=== PATIENT | male | born 1970 | race American Indian/Alaskan Native ===

== ENCOUNTER 2017-02-24 02:07 | Emergency (ER) | payer SELFPAY ==
[2017-02-24 03:48] LABS: Basophils % (Auto) 0.4 % (0.0-1.8); Eosinophils % (Auto) 0.4 % (0.0-4.3); Hematocrit 44.6 % (35.5-45.6); Hemoglobin 14.5 gm/dl (11.8-15.2); Mean Corpuscular HGB Conc 33 % (32-34); Mean Corpuscular Volume 79 fl (84-94); Platelet Count 155 K/mm3 (140-440); Red Blood Count 5.64 M/mm3 (3.65-5.03); Red Cell Distribution Width 15.2 % (13.2-15.2)
[2017-02-24 03:52] LABS: Bilirubin,Urine NEG (Negative); Blood,Urine NEG (Negative); Ketones,Urine NEG (Negative); Leukocyte Esterase,Urine SM (Negative); Mucus,Urine FEW /HPF; Nitrite,Urine NEG (Negative); Protein,Urine <15 mg/dL mg/dL (Negative); Urobilinogen,Urine < 2.0 mg/dL (<2.0)
[2017-02-24 04:01] LABS: Alanine Aminotransferase 13 units/L (7-56); Albumin 4.5 g/dL (3.9-5); Albumin/Globulin Ratio 1.6 %; Alkaline Phosphatase 75 units/L (35-129); Anion Gap 19 mmol/L; Bilirubin,Total < 0.2 mg/dL (0.1-1.2); Blood Urea Nitrogen 10 mg/dL (9-20); Calcium 9.5 mg/dL (8.4-10.2); Carbon Dioxide 22 mmol/L (22-30); Chloride 101.6 mmol/L (98-107); Glucose 125 mg/dL (75-100); Lipase 46 units/L (13-60); Potassium 3.5 mmol/L (3.6-5.0); Sodium 139 mmol/L (137-145); Total Protein 7.4 g/dL (6.3-8.2)
[2017-02-24 04:11] LABS: Mean Corpuscular Hemoglobin 26 pg (28-32)
[2017-02-24] MEDS ORDERED: MOTRIN PO ONE (07:31)
[2017-02-24] MEDS ORDERED: ROCEPHIN IM ONE (07:31)
[2017-02-24] MEDS ORDERED: ZITHROMAX PO ONE (07:31)
[2017-02-24] MEDS ORDERED: XYLOCAINE 1% MPF 5 mL INFILTRATI ONE (07:31)
[2017-02-24] MEDS ORDERED: NORVASC PO ONE (07:39)
--- NOTE | 2017-02-24 07:42 | Emergency Department Report ---
ED Male HPI - General Chief complaint: Abdominal Pain Stated complaint: ABDOMINAL PAIN Time Seen by Provider: 02/24/17 07:22 Source: patient Mode of arrival: Ambulatory Limitations: No Limitations - History of Present Illness Initial comments: 46-year-old male past medical history hypertension, left torn rotator cuff, history of chlamydia and gonorrhea, presents with complaint of pain in his groin and penile discharge for 2 weeks. Patient states she has a yellowish discharge with mild dysuria while urinating from tip of penis for 2 weeks. Denies any nausea vomiting no testicular pain no other lesions and genitourinary region. Patient denies any headache dizziness no blurry vision denies any weakness no chest pain no palpitations no shortness of breath no paresthesias. He incidentally states that his left shoulder is aching him as he has a torn rotator cuff and is expecting to have surgery next week for it. Also states that he has been off his hypertension medication for about 2-3 months, states he ran out of amlodipine. Patient does not endorse abdominal pain during my clinical exam. Pt AA0x3, cooperative, NAD. Complaint: penile discharge Onset/Timin -: week(s) Location: penis Severity: mild Quality: burning Consistency: intermittent Improves with: none Worsens with: urination - Related Data Previous Rx's Medication Instructions Recorded Last Taken Type Pantoprazole [Protonix TAB] 40 mg PO QDAY #14 tablet 02/01/17 Unknown Rx amLODIPine [Norvasc] 10 mg PO QDAY #30 tablet 02/01/17 Unknown Rx Acetaminophen [Acetaminophen TAB] 500 mg PO Q6HR PRN #20 tablet 02/24/17 Unknown Rx Ciprofloxacin HCl [Ciprofloxacin 500 mg PO Q12H #20 tab 02/24/17 Unknown Rx TAB] amLODIPine [Norvasc] 5 mg PO DAILY #30 tab 02/24/17 Unknown Rx Allergies Allergy/AdvReac Type Severity Reaction Status Date / Time No Known Allergies Allergy Unverified 08/03/13 08:08 ED Review of Systems ROS: Stated complaint: ABDOMINAL PAIN Other details as noted in HPI Constitutional: denies: chills, fever Eyes: denies: eye pain, eye discharge, vision change ENT: denies: ear pain, throat pain Respiratory: denies: cough, shortness of breath, wheezing Cardiovascular: denies: chest pain, palpitations Endocrine: no symptoms reported Gastrointestinal: denies: abdominal pain, nausea, diarrhea Genitourinary: dysuria, discharge. denies: urgency Musculoskeletal: other (chronic left shoulder pain). denies: back pain, joint swelling, arthralgia Skin: denies: rash, lesions Neurological: denies: headache, weakness, paresthesias Psychiatric: denies: anxiety, depression Hematological/Lymphatic: denies: easy bleeding, easy bruising ED Past Medical Hx - Past Medical History Previous Medical History?: Yes Hx Hypertension: Yes (Off Rx x 4 months) Hx Congestive Heart Failure: No Hx Diabetes: No Hx Asthma: No Hx COPD: No Hx HIV: No Additional medical history: Pt Denies - Surgical History Past Surgical History?: No Additional Surgical History: Pt Denies - Social History Smoking Status: Current Every Day Smoker Substance Use Type: None - Medications Home Medications: Home Medications Medication Instructions Recorded Confirmed Last Taken Type Pantoprazole [Protonix TAB] 40 mg PO QDAY #14 tablet 02/01/17 Unknown Rx amLODIPine [Norvasc] 10 mg PO QDAY #30 tablet 02/01/17 Unknown Rx Acetaminophen [Acetaminophen TAB] 500 mg PO Q6HR PRN #20 tablet 02/24/17 Unknown Rx Ciprofloxacin HCl [Ciprofloxacin 500 mg PO Q12H #20 tab 02/24/17 Unknown Rx TAB] amLODIPine [Norvasc] 5 mg PO DAILY #30 tab 02/24/17 Unknown Rx ED Physical Exam - General Limitations: No Limitations General appearance: alert, in no apparent distress - Head Head exam: Present: atraumatic, normocephalic - Eye Eye exam: Present: normal appearance, PERRL, EOMI - ENT ENT exam: Present: mucous membranes moist - Neck Neck exam: Present: normal inspection - Respiratory Respiratory exam: Present: normal lung sounds bilaterally. Absent: respiratory distress - Cardiovascular Cardiovascular Exam: Present: regular rate, normal rhythm. Absent: systolic murmur, diastolic murmur, rubs, gallop - GI/Abdominal GI/Abdominal exam: Present: soft, normal bowel sounds, other (abdomen is soft and nontender nondistended bowel sounds positive for quadrants, no right lower quadrant pain no testicular pain. Patient has very mild inguinal adenopathy bilaterally palpable, slightly tender to touch, does not have any inguinal hernias on clinical exam and direct palpation.) - Rectal Rectal exam: Present: deferred - Extremities Exam Extremities exam: Present: normal inspection - Back Exam Back exam: Present: normal inspection - Neurological Exam Neurological exam: Present: alert, oriented X3, CN II-XII intact, normal gait - Psychiatric Psychiatric exam: Present: normal affect, normal mood - Skin Skin exam: Present: warm, dry, intact, normal color. Absent: rash ED Course Vital Signs 02/24/17 02:42 Temperature 98.2 F Pulse Rate 110 H Respiratory 18 Rate Blood Pressure 158/101 O2 Sat by Pulse 98 Oximetry ED Medical Decision Making - Lab Data Result diagrams: 02/24/17 03:24 02/24/17 03:24 - Medical Decision Making A/P: Urethritis, possible UTI, asymptomatic hypertension 1-treat empirically based on symptoms with azithromycin and ceftriaxone 2-abdominal labs within normal limits, UA shows leuks w/ WBC, will tx empirically as pt does c/o dysuria 3-patient does not have signs of symptomatic hypertension no chest pain no palpitations no shortness of breath no blurry vision no headache no dizziness. Pain and was left shoulder is musculoskeletal and reproducible with movements of his left shoulder. He does not have abdominal pain he is complaining of mild discomfort in his inguinal region which is secondary to inguinal adenopathy in the setting of genitourinary infection. I will refill patient's amlodipine 1 month and I advised him to follow-up with primary care within the next few weeks 4-follow-up with primary care doctor Critical care attestation.: If time is entered above; I have spent that time in minutes in the direct care of this critically ill patient, excluding procedure time. ED Disposition Clinical Impression: Urethritis Hypertension Qualifiers: Hypertension type: unspecified secondary hypertension Qualified Code(s): I15.9 - Secondary hypertension, unspecified; I15 - Secondary hypertension Disposition: DISCHARGED TO HOME OR SELFCARE Is pt being admited?: No Does the pt Need Aspirin: No Condition: Stable Instructions: Hypertension (ED), Nonspecific Urethritis in Men (ED) Prescriptions: Acetaminophen [Acetaminophen TAB] 500 mg PO Q6HR PRN #20 tablet PRN Reason: Pain amLODIPine [Norvasc] 5 mg PO DAILY #30 tab Ciprofloxacin HCl [Ciprofloxacin TAB] 500 mg PO Q12H #20 tab Referrals: CHANDANA CONRAD MD [Staff Physician] - 3-5 Days [facility] [Provider Group] - 3-5 Days [facility] [Outside] - 3-5 Days Forms: STI Treatment and Prevention, Work/School Release Form(ED) Time of Disposition: 07:48
[2017-02-24 08:21] VITALS: BP 154/101
== END 2017-02-24 08:36 | disposition home or self-care (01) ==
LOC: ED 02:07
DX: N34.2 Other urethritis (principal); I15.9 Secondary hypertension, unspecified; F17.200 Nicotine dependence, unspecified, uncomplicated
CPT/HCPCS: 36415; 80053; 81001; 83690; 85025; 87086; 87591; 96372; 99283; J0696

== ENCOUNTER 2017-07-30 08:30 | Emergency (ER) | payer SELFPAY ==
[2017-07-30 09:16] LABS: Basophils % (Auto) 0.4 % (0.0-1.8); Eosinophils % (Auto) 1.6 % (0.0-4.3); Hematocrit 43.3 % (35.5-45.6); Hemoglobin 14.2 gm/dl (11.8-15.2); Mean Corpuscular HGB Conc 33 % (32-34); Mean Corpuscular Hemoglobin 27 pg (28-32); Mean Corpuscular Volume 81 fl (84-94); Platelet Count 169 K/mm3 (140-440); Red Blood Count 5.32 M/mm3 (3.65-5.03); Red Cell Distribution Width 14.5 % (13.2-15.2); White Blood Count 7.7 K/mm3 (4.5-11.0)
[2017-07-30 09:41] LABS: Alanine Aminotransferase 40 units/L (7-56); Albumin 4.4 g/dL (3.9-5); Albumin/Globulin Ratio 1.5 %; Alkaline Phosphatase 75 units/L (35-129); Anion Gap 17 mmol/L; Blood Urea Nitrogen 14 mg/dL (9-20); Calcium 9.2 mg/dL (8.4-10.2); Carbon Dioxide 24 mmol/L (22-30); Chloride 102.3 mmol/L (98-107); Glucose 94 mg/dL (75-100); Lipase 73 units/L (13-60); Potassium 4.1 mmol/L (3.6-5.0); Sodium 139 mmol/L (137-145); Total Protein 7.3 g/dL (6.3-8.2)
[2017-07-30] MEDS ORDERED: XYLOCAINE 1% MPF 5 mL INFILTRATI ONE (10:09)
[2017-07-30] MEDS ORDERED: ZITHROMAX PO ONE (10:09)
[2017-07-30] MEDS ORDERED: ROCEPHIN IM ONE (10:09)
[2017-07-30 10:19] LABS: Bilirubin,Urine NEG (Negative); Blood,Urine NEG (Negative); Ketones,Urine NEG (Negative); Leukocyte Esterase,Urine NEG (Negative); Mucus,Urine FEW /HPF; Nitrite,Urine NEG (Negative); Protein,Urine <15 mg/dL mg/dL (Negative); Urobilinogen,Urine < 2.0 mg/dL (<2.0)
--- NOTE | 2017-07-30 10:20 | Emergency Department Report ---
HPI - General Chief Complaint: Abdominal Pain Time Seen by Provider: 07/30/17 09:40 - HPI HPI: This is a 47 year-old male presents to the emergency department with complaint of some lower abdominal and pelvic pain is been going on for the past 4-5 days. He also complains of a burning sensation with urination. The patient says that the pain in the abdomen and pelvis occurs while having a bowel movement as well. He denies any fever, diarrhea, constipation, blood in the stool or urine. The patient is also concerned of an STD as he said that he was told by a female he had sexual intercourse with that she had "chlamydia or Trich or something." He tried to treat himself with some "penicillin off of the street" but says he has not had any improvement. He presents with some elevated blood pressure and doesn't history of hypertension but has not been on his amlodipine for 4 months. He does not have a primary care physician. No recent travel or sick contacts at home. He says that he does have a history of previous STD and thinks it was gonorrhea. ED Past Medical Hx - Past Medical History Previous Medical History?: Yes Hx Hypertension: Yes (Off Rx x 4 months) Hx Congestive Heart Failure: No Hx Diabetes: No Hx Asthma: No Hx COPD: No Hx HIV: No Additional medical history: Pt Denies - Surgical History Past Surgical History?: Yes Additional Surgical History: LEFT ROTATOR CUFF SURGERY 06/2017 - Social History Smoking Status: Current Every Day Smoker Substance Use Type: Prescribed - Medications Home Medications: Home Medications Medication Instructions Recorded Confirmed Last Taken Type Pantoprazole [Protonix TAB] 40 mg PO QDAY #14 tablet 02/01/17 07/30/17 07/09/17 Rx amLODIPine [Norvasc] 5 mg PO DAILY #30 tab 07/30/17 Unknown Rx metroNIDAZOLE [Flagyl] 500 mg PO Q12HR #14 tab 07/30/17 Unknown Rx ED Review of Systems ROS: Stated complaint: POSSIBLE,STD Other details as noted in HPI Comment: All other systems reviewed and negative Constitutional: denies: chills, fever Eyes: denies: eye pain, eye discharge, vision change ENT: denies: ear pain, throat pain Respiratory: denies: cough, shortness of breath, wheezing Cardiovascular: denies: chest pain, palpitations Gastrointestinal: abdominal pain. denies: nausea, vomiting Genitourinary: dysuria, testicular pain. denies: discharge Musculoskeletal: denies: back pain, joint swelling, arthralgia Skin: as per HPI Neurological: denies: headache, weakness, paresthesias Physical Exam - Physical Exam Vital Signs: Vital Signs 07/30/17 07/30/17 07/30/17 08:54 09:37 09:44 Temperature 98.5 F 97.5 F L Pulse Rate 85 82 Respiratory 18 19 19 Rate Blood Pressure 170/122 Blood Pressure 176/113 [Right] O2 Sat by Pulse 100 99 Oximetry Physical Exam: GENERAL: The patient is well-developed well-nourished. HENT: Normocephalic. Atraumatic. Patient has moist mucous membranes. EYES: Extraocular motions are intact. Pupils equal reactive to light bilaterally. NECK: Supple. Trachea is midline. CHEST/LUNGS: Clear to auscultation. There is no respiratory distress noted. HEART/CARDIOVASCULAR: Regular. There is no tachycardia. There is no gallop rub or murmur. ABDOMEN: Abdomen is soft. Mild lower abdominal tenderness to palpation. No guarding or rebound tenderness. Patient has normal bowel sounds. There is no abdominal distention. SKIN: Skin is warm and dry. NEURO: The patient is awake, alert, and oriented. The patient is cooperative. The patient has no focal neurologic deficits. The patient has normal speech. : No palpable hernia. No penile or scrotal lesions. No palpable masses. MUSCULOSKELETAL: There is no tenderness or deformity. There is no limitation range of motion. There is no evidence of acute injury. ED Course Vital Signs 07/30/17 07/30/17 07/30/17 08:54 09:37 09:44 Temperature 98.5 F 97.5 F L Pulse Rate 85 82 Respiratory 18 19 19 Rate Blood Pressure 170/122 Blood Pressure 176/113 [Right] O2 Sat by Pulse 100 99 Oximetry ED Medical Decision Making - Lab Data Result diagrams: 07/30/17 09:06 07/30/17 09:06 - Radiology Data Radiology results: report reviewed, image reviewed interpreted by me: Abdominal x-ray does not show any acute process. Testicular ultrasound was a normal examination. CT of the abdomen and pelvis shows a nonobstructing right 6 mm renal stone but otherwise is a normal examination. - Medical Decision Making 47-year-old male presents to the emergency department with complaint of exposure to an STD and even showed me the text he received from a female saying that she was positive for chlamydia and trichomoniasis. He has also been having a more prolonged episode of abdominal and/or pelvic discomfort. Testicular ultrasound is negative for torsion and is a normal examination. CT of the abdomen and pelvis shows a nonobstructing right renal stone but otherwise is also a normal examination. Vital signs stable. His course except for some hypertension. He has been noncompliant with his amlodipine for the past 4 months so a prescription was written for this. He was given multiple referrals for primary care. He will return to the ER if any worsening of symptoms or any acute distress. - Differential Diagnosis testicular torsion, STD, colitis, nephrolithiasis Critical Care Time: No Critical care attestation.: If time is entered above; I have spent that time in minutes in the direct care of this critically ill patient, excluding procedure time. ED Disposition Clinical Impression: Exposure to STD, Uncontrolled hypertension, Noncompliance with medication regimen Disposition: TO HOME OR SELFCARE Is pt being admited?: No Condition: Stable Instructions: Sexually Transmitted Diseases (ED), Trichomoniasis (ED), Hypertension (ED) Additional Instructions: Please follow-up with a primary care physician in the next few days. I have started you on a antibiotic called Flagyl/metronidazole to treat your possible exposure to trichomoniasis. This medication cannot be mixed with alcohol and you should not drink alcohol for up to 2 days after finishing the medication or else you will have significant nausea, vomiting and abdominal pain. I have restarted your amlodipine. Try to stay away from foods that are high in salt and caffeinated products to help with your blood pressure. Keep a blood pressure log. Return to the emergency Department with any worsening of your symptoms or any acute distress. Prescriptions: amLODIPine [Norvasc] 5 mg PO DAILY #30 tab metroNIDAZOLE [Flagyl] 500 mg PO Q12HR #14 tab Referrals: PRIMARY CARE, [Primary Care Provider] - 3-5 Days [facility] [Outside] - 3-5 Days [facility] [Outside] - 3-5 Days [facility] [Outside] - 3-5 Days [facility] [Outside] - 3-5 Days Time of Disposition: 13:36
--- NOTE | 2017-07-30 10:53 | Ultrasound Report ---
ULTRASOUND TESTICULAR DOPPLER COMPLETE History: Testicular pain. Technique: Trans-scrotal ultrasound with spectral doppler interrogation. Findings: Both testes and epididymides are normal size, contour and echotexture. No hydrocele or varicocele. No mass or pathologic calcifications. Spectral Doppler interrogation depicts symmetric arterial flow to both testes. IMPRESSION: Unremarkable testicular ultrasound.
--- NOTE | 2017-07-30 11:03 | XRay Report ---
ABDOMEN, 2 views: History: Abdominal pain. The gas pattern within the abdomen is unremarkable. There is no evidence of bowel dilatation, significant air-fluid levels, or free air. Organ shadows are unremarkable. 4 mm calcification overlies the mid right kidney which may represent a right renal stone. A 1.3 x 0.7 cm calcification is identified in the right side of the pelvis which is of uncertain etiology. A large ureteral stone could be considered but is thought less likely. Please correlate with the patient. IMPRESSION: Calcifications as described above. Correlate for nephrolithiasis. No evidence for bowel obstruction.
--- NOTE | 2017-07-30 13:14 | Cat Scan Report ---
CT OF THE ABDOMEN AND PELVIS WITHOUT CONTRAST HISTORY: Abdominal pain. TECHNIQUE: Helical CT without contrast. Sagittal and coronal reformatted images. FINDINGS: 6 mm calculus in the right kidney is noted. No additional nephrolithiasis. No renal cystic disease, mass or hydronephrosis. The ureters and bladder are unremarkable. Right pelvic calcification seen on x-ray is consistent with a phlebolith. Within the limits of a noncontrast exam, the remaining abdominal and pelvic viscera are within normal limits. The liver, biliary system, pancreas, spleen, and adrenal glands are unremarkable. The bowel loops are normal caliber and wall thickness. Normal appendix. The aorta is normal caliber. No ascites, bulky adenopathy or inflammatory changes. The lung bases are clear. Normal heart size. No suspicious bony lesion. IMPRESSION: 6 mm right renal calculus, nonobstructing. Otherwise, unremarkable CT abdomen and pelvis.
[2017-07-30 13:47] VITALS: BP 163/108
== END 2017-07-30 13:46 | disposition home or self-care (01) ==
LOC: ED 08:30
DX: Z20.2 Contact with and (suspected) exposure to infections with a predominantly sexual mode of transmission (principal); I10 Essential (primary) hypertension; Z91.14 Patient's other noncompliance with medication regimen; R10.2 Pelvic and perineal pain; R10.30 Lower abdominal pain, unspecified; F17.200 Nicotine dependence, unspecified, uncomplicated
CPT/HCPCS: 36415; 74020; 74176; 80053; 81001; 83690; 85025; 93975; 96372; 99284; J0696

== ENCOUNTER 2018-09-09 14:39 | Emergency (ER) | payer SELFPAY ==
[2018-09-09 14:57] VITALS: BP 161/115
[2018-09-09 16:03] LABS: Bilirubin,Urine NEG (Negative); Blood,Urine NEG (Negative); Color,Urine Yellow (Yellow); Mucus,Urine FEW /HPF; Protein,Urine <15 mg/dL mg/dL (Negative); Urobilinogen,Urine < 2.0 mg/dL (<2.0)
--- NOTE | 2018-09-09 16:31 | Emergency Department Report ---
ED Back Pain/Injury HPI - General Chief Complaint: Back Pain/Injury Stated Complaint: HBP/BACK PAIN/BLADDER INFECTION Time Seen by Provider: 09/09/18 15:22 Source: patient Limitations: No Limitations - History of Present Illness Initial Comments: 48 year-old male with left lower back pain since yesterday. States pain is radiating down into the left leg as well. Patient reports he had to climb out of a car window last night, and thinks he may have pulled a muscle in his lower back. Patient also reports pressure in bladder urination, denies burning sensation, denies penile discharge. Patient also reports history of kidney stones in the past. Denies hematuria. Patient also reports that he has been having difficulty obtaining an erection lately. Concerned he may have some sort of infection which is causing this. MD Complaint: back pain Similar Symptoms Previously: No Radiation: left leg Severity: mild Quality: sharp Consistency: intermittent Improves With: immobilization Worsens With: movement, walking Context: turning/twisting, bending, history of kidney stones Associated Symptoms: other (reports pressure with urination). denies: incontinence, fever/chills - Related Data Previous Rx's Medication Instructions Recorded Last Taken Type Pantoprazole [Protonix TAB] 40 mg PO QDAY #14 tablet 02/01/17 07/09/17 Rx amLODIPine [Norvasc] 5 mg PO DAILY #30 tab 07/30/17 Unknown Rx metroNIDAZOLE [Flagyl] 500 mg PO Q12HR #14 tab 07/30/17 Unknown Rx Methocarbamol [Robaxin-750] 750 mg PO Q6HR PRN #20 tablet 09/09/18 Unknown Rx Naproxen [Naprosyn] 500 mg PO BID #20 tablet 09/09/18 Unknown Rx amLODIPine [Norvasc] 5 mg PO DAILY #30 tab 09/09/18 Unknown Rx predniSONE [Prednisone] 50 mg PO DAILY #5 tablet 09/09/18 Unknown Rx Allergies Allergy/AdvReac Type Severity Reaction Status Date / Time No Known Allergies Allergy Unverified 08/03/13 08:08 ED Review of Systems ROS: Stated complaint: HBP/BACK PAIN/BLADDER INFECTION Other details as noted in HPI Comment: All other systems reviewed and negative Constitutional: denies: chills, fever Gastrointestinal: abdominal pain Genitourinary: dysuria, other (reports difficulty with erections). denies: frequency, hematuria, discharge Musculoskeletal: back pain Neurological: denies: weakness, numbness, paresthesias ED Past Medical Hx - Past Medical History Hx Hypertension: Yes (Off Rx x 4 months) Hx Congestive Heart Failure: No Hx Diabetes: No Hx Asthma: No Hx COPD: No Hx HIV: No Additional medical history: Pt Denies - Surgical History Past Surgical History?: Yes Additional Surgical History: LEFT ROTATOR CUFF SURGERY 06/2017 - Social History Smoking Status: Current Every Day Smoker Substance Use Type: None - Medications Home Medications: Home Medications Medication Instructions Recorded Confirmed Last Taken Type Pantoprazole [Protonix TAB] 40 mg PO QDAY #14 tablet 02/01/17 07/30/17 07/09/17 Rx amLODIPine [Norvasc] 5 mg PO DAILY #30 tab 07/30/17 Unknown Rx metroNIDAZOLE [Flagyl] 500 mg PO Q12HR #14 tab 07/30/17 Unknown Rx Methocarbamol [Robaxin-750] 750 mg PO Q6HR PRN #20 tablet 09/09/18 Unknown Rx Naproxen [Naprosyn] 500 mg PO BID #20 tablet 09/09/18 Unknown Rx amLODIPine [Norvasc] 5 mg PO DAILY #30 tab 09/09/18 Unknown Rx predniSONE [Prednisone] 50 mg PO DAILY #5 tablet 09/09/18 Unknown Rx ED Physical Exam - General Limitations: No Limitations General appearance: alert, in no apparent distress - Head Head exam: Present: atraumatic, normocephalic - Eye Eye exam: Present: normal appearance - ENT ENT exam: Present: mucous membranes moist - Neck Neck exam: Present: normal inspection - Respiratory Respiratory exam: Present: normal lung sounds bilaterally. Absent: respiratory distress - Cardiovascular Cardiovascular Exam: Present: regular rate, normal rhythm - GI/Abdominal GI/Abdominal exam: Present: soft. Absent: tenderness - Extremities Exam Extremities exam: Present: normal inspection - Back Exam Back exam: Present: other (tenderness in left sciatic notch) - Neurological Exam Neurological exam: Present: alert, oriented X3. Absent: motor sensory deficit - Psychiatric Psychiatric exam: Present: normal affect, normal mood - Skin Skin exam: Present: warm, dry, intact, normal color ED Course Vital Signs 09/09/18 14:54 Temperature 97.6 F Pulse Rate 84 Respiratory 16 Rate Blood Pressure 161/115 O2 Sat by Pulse 98 Oximetry ED Medical Decision Making - Medical Decision Making Patient with sciatica on exam. UA negative. Will give prescription for anti- inflammatories, steroids, muscle relaxer. Will give outpatient follow-up for primary care provider and urologist. - Differential Diagnosis UTI, sciatica, pyelonephritis Critical care attestation.: If time is entered above; I have spent that time in minutes in the direct care of this critically ill patient, excluding procedure time. ED Disposition Clinical Impression: Sciatica, Essential hypertension Disposition: TO HOME OR SELFCARE Is pt being admited?: No Condition: Stable Instructions: Low Back Strain (ED), Lumbar Radiculopathy (ED), Hypertension (ED ) Prescriptions: amLODIPine [Norvasc] 5 mg PO DAILY #30 tab Methocarbamol [Robaxin-750] 750 mg PO Q6HR PRN #20 tablet PRN Reason: Spasms Naproxen [Naprosyn] 500 mg PO BID #20 tablet predniSONE [Prednisone] 50 mg PO DAILY #5 tablet Referrals: [facility] [Provider Group] - 3-5 Days JOI THIBODEAUX MD [Staff Physician] - as needed Time of Disposition: 16:33
== END 2018-09-09 17:00 | disposition home or self-care (01) ==
LOC: ED 14:39
DX: M54.32 Sciatica, left side (principal); R39.89 Other symptoms and signs involving the genitourinary system; I10 Essential (primary) hypertension; F17.200 Nicotine dependence, unspecified, uncomplicated; Z87.442 Personal history of urinary calculi; Z98.890 Other specified postprocedural states
CPT/HCPCS: 81001; 99283

== ENCOUNTER 2019-04-07 11:00 | Emergency (ER) | payer SELFPAY ==
[2019-04-07 11:28] VITALS: BP 173/117
--- NOTE | 2019-04-07 11:29 | Emergency Department Report ---
ED Dysuria HPI - HPI Chief Complaint: Back Pain/Injury Stated Complaint: LOWERLT BACK PAIN Time Seen by Provider: 04/07/19 11:29 Duration: 2 Days Severity: Mild Symptoms: Dysuria: Yes, Frequency: No, Suprapubic Pain: No, Flank Pain: No, Hematuria: No, Abdominal Pain: Yes Other History: CO COPIOUS PENILE DC. DECLINES OUTPT MANAGEMENT. NO TESTICULAR PAIN. NO FEVER. 1 FEMALE PARTNER. UNPROTECTED ED Review of Systems ROS: Stated complaint: LOWERLT BACK PAIN Other details as noted in HPI Comment: All other systems reviewed and negative ED Past Medical Hx - Past Medical History Hx Hypertension: Yes (Off Rx x 4 months) Hx Congestive Heart Failure: No Hx Diabetes: No Hx Asthma: No Hx COPD: No Hx HIV: No Additional medical history: Pt Denies - Surgical History Additional Surgical History: LEFT ROTATOR CUFF SURGERY 06/2017 - Social History Smoking Status: Current Every Day Smoker Substance Use Type: None - Medications Home Medications: Home Medications Medication Instructions Recorded Confirmed Last Taken Type Pantoprazole [Protonix TAB] 40 mg PO QDAY #14 tablet 02/01/17 07/30/17 07/09/17 Rx amLODIPine [Norvasc] 5 mg PO DAILY #30 tab 07/30/17 Unknown Rx metroNIDAZOLE [Flagyl] 500 mg PO Q12HR #14 tab 07/30/17 Unknown Rx Methocarbamol [Robaxin-750] 750 mg PO Q6HR PRN #20 tablet 09/09/18 Unknown Rx Naproxen [Naprosyn] 500 mg PO BID #20 tablet 09/09/18 Unknown Rx amLODIPine [Norvasc] 5 mg PO DAILY #30 tab 09/09/18 Unknown Rx predniSONE [Prednisone] 50 mg PO DAILY #5 tablet 09/09/18 Unknown Rx Dysuria Exam - Exam General: Vital signs noted. No distress. Alert and acting appropriately. Exam: Yes Moist Mucous Membranes, No CVA Tenderness, No Abdominal Tenderness, No Rigidity or Guarding ED Course Vital Signs 04/07/19 11:27 Temperature 98.4 F Pulse Rate 103 H Respiratory 20 Rate Blood Pressure 173/117 O2 Sat by Pulse 99 Oximetry ED Medical Decision Making - Medical Decision Making UA AND GC SENT EMPIRIC TREATMENT DC HOME Vital Signs 04/07/19 11:27 Temperature 98.4 F Pulse Rate 103 H Respiratory 20 Rate Blood Pressure 173/117 O2 Sat by Pulse 99 Oximetry Critical care attestation.: If time is entered above; I have spent that time in minutes in the direct care of this critically ill patient, excluding procedure time. ED Disposition Clinical Impression: STD exposure, Penile discharge Disposition: DC-01 TO HOME OR SELFCARE Is pt being admited?: No Does the pt Need Aspirin: No Condition: Stable Instructions: Safe Sex (ED) Referrals: [facility] [Outside] - 3-5 Days Time of Disposition: 11:50
[2019-04-07] MEDS ORDERED: ROCEPHIN IM ONE (11:44)
[2019-04-07] MEDS ORDERED: XYLOCAINE 1% MPF 5 mL INFILTRATI ONE (11:44)
[2019-04-07] MEDS ORDERED: ZITHROMAX PO ONE (11:44)
[2019-04-07 12:41] LABS: Bilirubin,Urine NEG (Negative); Blood,Urine NEG (Negative); Color,Urine Yellow (Yellow); Mucus,Urine FEW /HPF; Protein,Urine <15 mg/dL mg/dL (Negative); Urobilinogen,Urine < 2.0 mg/dL (<2.0)
== END 2019-04-07 12:20 | disposition home or self-care (01) ==
LOC: ED 11:00
DX: R30.0 Dysuria (principal); R36.9 Urethral discharge, unspecified; I10 Essential (primary) hypertension; F17.200 Nicotine dependence, unspecified, uncomplicated; Z20.2 Contact with and (suspected) exposure to infections with a predominantly sexual mode of transmission
CPT/HCPCS: 81001; 87591; 96372; 99283; J0696

== ENCOUNTER 2022-06-02 20:17 | Emergency (ER) | payer SELFPAY ==
[2022-06-02 22:44] VITALS: BP 149/100
== END 2022-06-02 22:00 | disposition left against medical advice (07) ==
LOC: ED 20:17
DX: Z00.00 Encounter for general adult medical examination without abnormal findings (principal); Z53.21 Procedure and treatment not carried out due to patient leaving prior to being seen by health care provider